=== PATIENT | male | born 1965 | race Caucasian/White ===

== ENCOUNTER 2018-12-11 08:18 | Day surgery (SDC) | payer OTHER ==
[2018-12-11] MEDS ORDERED: LACTATED RINGERS 1,000 ML IV ONE (08:56)
[2018-12-11] MEDS ORDERED: MIDAZOLAM 2 MG/2 ML VIAL IVP ONE (09:28)
[2018-12-11] MEDS ORDERED: fentaNYL 250 MCG/5 ML VIAL IVP ONE (09:28)
[2018-12-11 10:29] VITALS: BP 94/55
== END 2018-12-11 08:19 | disposition home or self-care (01) ==
LOC: SDS 08:18
PROVIDERS: ATTEND Surgery
PROC: 0DJD8ZZ Inspection of Lower Intestinal Tract, Via Natural or Artificial Opening Endoscopic (ICD-10-PCS; principal; 2018-12-11 09:45)
DX: Z12.11 Encounter for screening for malignant neoplasm of colon (principal); K64.8 Other hemorrhoids
CPT/HCPCS: 45378; J3010; J7120